=== PATIENT | male | born 1965 | race Caucasian/White ===

== ENCOUNTER → 2017-11-02 | Outpatient (CLI) | payer OTHER ==
[~2017-11-02] MED LIST: IOPAMIDOL 370 MG/ML 200 ML INFUS..BTL INJ ONE; SODIUM CHLORIDE 0.9% 50ML 100 ML ONE
[2017-11-02 12:36] LABS: BLOOD UREA NITROGEN 21 mg/dL (7-26); BUN/CREATININE RATIO 21 (6-25); CREATININE, SERUM 1.02 mg/dL (0.72-1.25); EST GLOMERULAR FILTRATION RATE > 60 ML/MIN (60-)
--- NOTE | 2017-11-02 14:18 | Diagnostic Imaging Report ---
PROCEDURE:CHEST 2 VIEWS TECHNIQUE:PA and lateral chest INDICATION:Ascending aortic aneurysm COMPARISON:None. FINDINGS: The lungs are clear and symmetrically inflated. No pleural effusions. Normal heart size. Mildly tortuous descending thoracic aorta. Intact skeleton. CONCLUSION: The reported ascending aortic aneurysm is not conspicuous. There is mild tortuosity of the descending thoracic aorta. Dictated by: Eber Smalls M.D. on 11/02/2017 at 14:26 Electronically approved by: Eber Smalls M.D. on 11/02/2017 at 14:26
--- NOTE | 2017-11-02 15:07 | Diagnostic Imaging Report ---
EXAM: CTA Chest WITH contrast. DATE: 11/02/2017 11:59 AM INDICATION: COMPARISON: None TECHNIQUE: CT angiogram of the chest was obtained after the administration of IV contrast. Prospective gating was performed. Images reviewed in the axial, coronal, and sagittal planes. 3D reconstructions performed on off-line workstation. Reformatted axial MIP images were obtained and reviewed. IV Contrast: 100 mL Isovue-370. Total DLP: 838 mGy*cm Est. Eff. Dose DLP x 0.015 x size factor mSv (CTDIvol has been reviewed and is below limits set by [facility]). FINDINGS: Lines and Tubes: None. Lower Neck: The visualized thyroid gland is grossly unremarkable with no suspicious or significant nodule identified. Heart and Great Vessels: The pulmonary artery measure 26 mm. The cardiothoracic radio measures 16/28. No pericardial effusion is present. No intracardiac filling defect is identified. No central pulmonary embolus present. Aortic Annulus: 28 mm. Sinus of Valsalva: 46 mm. Ascending Aorta at level of PA: 43 mm. Mid Arch: 28 mm. Proximal Descendin mm. Mid Descendin mm. Distal Descendin mm. Other: No dissection is identified. Lymph Nodes: No suspicious adenopathy. Lungs: Trachea and central bronchi are unremarkable. Dependent opacities in the lung bases have the appearance of atelectasis. No pneumothorax or pleural effusion is identified. Probable granuloma left lower lobe axial image 89. 2 mm pleural nodule left lower lobe axial image 99. Tiny granuloma right axial image 60. Upper abdomen: No acute findings. Bones and Soft Tissues: Mild degenerative changes. IMPRESSION: 1. 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 Follow-up recommended. 2. Tiny 2 to 3 mm pulmonary nodules as detailed above, of doubtful clinical significance. No CT follow-up necessary if patient has no personal history of malignancy and is low risk for malignancy. Signed by: Dr. Kevin Ojeda MD on 11/02/2017 3:03 PM
--- NOTE | 2017-11-06 09:44 | Diagnostic Imaging Report ---
EXAMINATION: CT angiogram of the neck CLINICAL HISTORY:Ascending aortic aneurysm follow-up, left neck pain COMPARISON STUDIES:CT of the chest performed on the same day TECHNIQUE: Axial images were obtained from the thoracic inlet. Coronal and sagittal images reconstructed from the axial data. Intravenous contrast: 100 cc of Omnipaque 300. FINDINGS: If present, stenosis of the carotid bulbs is measured based on NASCET criteria i.e area of maximum stenosis compared to the cervical ICA distal to the bulb. Aortic arch and major vessels: The aortic arch is not visualized, please see separate dictation chest CTA performed the same day for further detail on aneurysmal dilatation. The origin of the vertebral arteries, brachiocephalic trunk and left common carotid artery are patent. Common carotid arteries: Right: Patent. No abnormalities. Left :Patent. No abnormalities. Carotid bulbs: Right: Patent. No abnormalities. Left :Patent. No abnormalities. Internal carotid arteries: Right: Patent. No abnormalities. Left: Patent. No abnormalities. Vertebral arteries: Patent. No abnormalities. IMPRESSION: Normal CT angiogram of the neck, particularly no occlusion, hemodynamically significant stenosis or aneurysmal dilatation is seen in the carotid or vertebral arteries in the neck. Signed by: Dr. Mary William M.D. on 11/06/2017 9:40 AM
== END ==
LOC: CT 11:46
PROVIDERS: ATTEND Internal Medicine
DX: I71.4 Abdominal aortic aneurysm, without rupture (principal); I65.29 Occlusion and stenosis of unspecified carotid artery; M54.2 Cervicalgia; R93.1 Abnormal findings on diagnostic imaging of heart and coronary circulation
CPT/HCPCS: 36415; 70498; 71020; 71275; 82565; 84520; Q9967